=== PATIENT | male | born 1995 | race African-American/Black ===

== ENCOUNTER 2019-01-23 06:22 | Emergency (ER) | payer SELFPAY ==
[2019-01-23] MEDS ORDERED: Lidocaine 1% w/Epinephrine 1:100K 20 ML VIAL ONE (06:29)
[2019-01-23] MEDS ORDERED: Adacel (T-DAP) 0.5 ML SYRINGE ONE (06:52)
[2019-01-23 07:52] LABS: HBSAg Index 0.19 S/CO (0-0.99); HIV (1/2) Antibody/Antigen Non-Reactive (NonReactive); Hep B Surf Ag Non-Reactive S/CO (NonReactive); Hep C IgG Ab Non-Reactive (NonReactive); Hep C Index 0.18 S/CO (0-0.79)
== END 2019-01-23 07:01 ==
LOC: ERS 06:22
DX: S61.511A Laceration without foreign body of right wrist, initial encounter (principal); S61.011A Laceration without foreign body of right thumb without damage to nail, initial encounter; Z23 Encounter for immunization; W26.8XXA Contact with other sharp object(s), not elsewhere classified, initial encounter
CPT/HCPCS: 12001; 36415; 86803; 87340; 87389; 90471; 90715